=== PATIENT | male | born 1940 | race Caucasian/White ===

== ENCOUNTER 2024-10-25 05:45 | Day surgery (SDC) | payer MEDICARE, OTHER ==
--- NOTE | 2024-10-20 20:21 | HP ---
HISTORY OF PRESENT ILLNESS: Patient is an 84-year-old male who presents with complaints of dysphagia. It looks like he does eat food and gets choked a lot and he has to cough it up. He had a dilatation in 2017. It was with Dr. Thomas. PAST MEDICAL HISTORY: COPD, atrial fibrillation, BPH, hyperlipidemia, GERD. He had a history of some lung cancer. MEDICATIONS: Atorvastatin, omeprazole, tamsulosin, finasteride. PAST SURGICAL HISTORY: Prostate surgery, hip surgery, hernia, lung lobectomy, rotator cuff. FAMILY HISTORY: Colon cancer. SOCIAL HISTORY: Former smoker. ALLERGIES: None reported. REVIEW OF SYSTEMS: CONSTITUTIONAL: Denies fever or chills. CHEST: Denies shortness of breath. CARDIOVASCULAR: Denies chest pain. ABDOMEN: Denies abdominal pain. PHYSICAL EXAMINATION: GENERAL: No acute distress. CARDIOVASCULAR: Regular rate and rhythm. RESPIRATORY: Nonlabored. No shortness of breath. ABDOMEN: Soft. ASSESSMENT: Dysphagia. PLAN: EGD with possible dilatation with Dr. Malik Alcantara. I believe we also scheduled a barium swallow on this gentleman. This report was dictated for Dr. Alcantara by Radha Ojeda NP.
[2024-10-25 06:22] VITALS: RESP 18
[2024-10-25] MEDS ORDERED: propofoL IV ONE (08:34)
[2024-10-25 09:16] VITALS: TEMP 97; O2SAT 99
[2024-10-25 09:33] VITALS: BP 120/67; PULSE 99
--- NOTE | 2024-10-26 13:02 | OP ---
SURGERY DATE/TIME: 10/25/2024 7583 - [id number] PREOPERATIVE DIAGNOSIS: Dysphagia. POSTOPERATIVE DIAGNOSES: 1) Dysphagia. 2) Mild distal esophageal stricture. PROCEDURE: Esophagogastroduodenoscopy with dilatation. SURGEON: Malik Alcantara MD ANESTHESIA: General. COMPLICATIONS: None. CONDITION: Stable. DESCRIPTION OF PROCEDURE AND FINDINGS: Patient was taken to endoscopy. Left lateral decubitus position. Scope introduced. Vocal cords normal. Pharyngoesophageal junction normal. Upper esophagus was normal. Middle esophagus satisfactory. There was a very light stricture at the EG junction. There was a 1 inch hiatal hernia. Fundus, body and the antrum satisfactory. Scope withdrawn. Balloon was seen through the scope. First stage, second stage, third stage, it did dilate just slightly. The post-dilatation area was all satisfactory. The scope and the balloon were removed. Patient tolerated the procedure satisfactorily. Findings discussed with the family in the waiting room. He is 84 years old. He does have some hiatal hernia, and he is elderly. 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
== END 2024-10-25 09:38 | disposition home or self-care (01) ==
LOC: SDC 05:45 → EDSTATUS 14:45
PROVIDERS: ATTEND Surgery
DX: K22.2 Esophageal obstruction (principal); R13.10 Dysphagia, unspecified; K44.9 Diaphragmatic hernia without obstruction or gangrene
CPT/HCPCS: 93005; 99100; C1726; J2704